=== PATIENT | male | born 1990 | race Caucasian/White ===

== ENCOUNTER 2020-11-01 11:28 | Emergency (ER) | payer MEDICAID ==
[~2020-11-01] VITALS: Ht 180.3 cm; Wt 73.0 kg
[2020-11-01 12:12] LABS: BASOPHILS % 0.8 % (0.0-2.0); EOSINOPHILS % 1.7 % (0.0-5.0); HEMATOCRIT. 47.1 % (42.0-52.0); HEMOGLOBIN. 16.6 g/dL (14.0-18.0); MEAN CORPUSCULAR VOLUME 90.9 fL (80.0-94.0); MEAN PLATELET VOLUME 7.2 fl (7.4-10.4); NEUTROPHILS % 69.5 % (40.0-76.0); PLATELET 282 x1000/uL (130-400); RED BLOOD CELL COUNT 5.18 mill/uL (4.7-6.1)
[2020-11-01 12:17] LABS: CHLORIDE 102 mEq/L (98-107)
[2020-11-01 12:25] VITALS: BP 116/78
[2020-11-01] MEDS ORDERED: IBUP-2029 MT (14:25)
[2020-11-01] MEDS ORDERED: LIDOCAINE 5% PATCH TOP SCH (14:30)
[2020-11-01] MEDS ORDERED: ACETAMINOPHEN 325MG TABLET PO ONE (14:30)
== END 2020-11-01 16:15 | disposition home or self-care (01) ==
LOC: ER 11:28
DX: S29.011A Strain of muscle and tendon of front wall of thorax, initial encounter (principal); R07.89 Other chest pain; F17.200 Nicotine dependence, unspecified, uncomplicated; X58.XXXA Exposure to other specified factors, initial encounter; Y93.9 Activity, unspecified; Y92.9 Unspecified place or not applicable; Z59.0 Homelessness
CPT/HCPCS: 36415; 71045; 80053; 83880; 84484; 85025; 85379; 99285